=== PATIENT | female | born 1985 | race Two or more races ===

== ENCOUNTER 2024-02-18 15:36 | Inpatient (IN) | payer MEDICAID ==
[~2024-02-18] VITALS: Ht 157.5 cm; Wt 59.0 kg
[2024-02-18 16:04] LABS: BASOPHILS % (AUTO) 0.3 % (0.0-2.0); EOSINOPHILS % (AUTO) 0.3 % (0.0-7.0); HEMATOCRIT 37.1 % (31.2-41.9); HEMOGLOBIN 12.4 g/dL (10.9-14.3); LYMPHOCYTES # (AUTO) 1.3 K/uL (0.8-4.8); LYMPHOCYTES % (AUTO) 12.6 % (20.5-51.5); MEAN CORPUSCULAR HEMOGLOBIN 31.1 uug (24.7-32.8); MEAN CORPUSCULAR HGB CONC 34 g/dL (32.3-35.6); MEAN CORPUSCULAR VOLUME 92.6 fL (75.5-95.3); MONOCYTES # (AUTO) 0.4 K/uL (0.1-1.30); MONOCYTES % (AUTO) 4.5 % (0.0-11.0); NEUTROPHILS # (AUTO) 8.2 K/uL (1.8-8.9); NEUTROPHILS % (AUTO) 82.3 % (38.5-71.5); PLATELET COUNT (AUTO) 288 K/uL (179-408); RED CELL DISTRIBUTION WIDTH 14.7 % (12.3-17.7)
[2024-02-18 16:11] LABS: DIFFERENTIAL COMMENT 1
[2024-02-18 16:12] LABS: CALCIUM 9.1 mg/dL (8.5-10.1); CARBON DIOXIDE 26 mmol/L (21-32); CHLORIDE 104 mmol/L (98-107); CREATININE 0.9 mg/dL (0.6-1.3); GLUCOSE 131 mg/dL (74-106); POTASSIUM 3.9 mmol/L (3.5-5.1); SODIUM SERUM 138 mmol/L (136-145); UREA NITROGEN, BLOOD 13 mg/dL (7-18)
[2024-02-18 16:14] LABS: AMMONIA 21 umol/L (11-32)
[2024-02-18] MEDS: IV NORMAL SALINE 1000 ML BAG IV ONE ×2 (16:19→18:59)
[2024-02-18 16:21] LABS: ALANINE AMINOTRANSFERASE 28 U/L (14-59); ALBUMIN 3.5 g/dL (3.4-5.0); ALKALINE PHOSPHATASE 83 U/L (50-136); ASPARTATE AMINOTRANSFERASE 11 U/L (15-37); BILIRUBIN,DIRECT 0.1 mg/dL (0.0-0.2); BILIRUBIN,TOTAL 0.2 mg/dL (0.2-1.0)
[2024-02-18 16:26] LABS: THYROID STIMULATING HORMONE 1.335 mIU/mL (0.358-3.740)
[2024-02-18 16:33] LABS: ETHANOL < 3 MG/DL (0-10)
[2024-02-18 16:58] LABS: *BILIRUBIN,URIN NEGATIVE (NEGATIVE); *BLOOD, URINE 2+ (NEGATIVE); *COLOR,URINE YELLOW (YELLOW); *KETONES,URINE NEGATIVE (NEGATIVE); *PROTEIN,URINE 1+ (NEGATIVE); *UROBILINOGEN,URINE 0.2 E.U./dl (NORMAL); LEUKOCYTE ESTERASE ,URINE 1+ (NEGATIVE); NITRITE, URINE NEGATIVE (NEGATIVE); UGLUCOSE NEGATIVE (NEGATIVE)
[2024-02-18 17:04] LABS: *CLARITY,URINE SLIGHTLY CLOUDY (CLEAR)
[2024-02-18 17:09] LABS: *AMPHETAMINE, URINE NEGATIVE (NEGATIVE); *BARBITURATE, URINE NEGATIVE (NEGATIVE); *BENZODIAZEPINE, URINE NEGATIVE (NEGATIVE); *CANNABINOID, URINE POSITIVE (NEGATIVE); *COCCAINE, URINE NEGATIVE (NEGATIVE); *OPIATE, URINE NEGATIVE (NEGATIVE); *PHENCYCLIDINE SCREEN,URINE NEGATIVE (NEGATIVE); FENTANYL, URINE NEGATIVE (NEGATIVE)
[2024-02-18] MEDS ORDERED: LORAZEPAM 2 MG/1 ML VIAL ONE (17:13)
[2024-02-18] MEDS: LORAZEPAM 2 MG/1 ML VIAL IV ONE (17:16)
[2024-02-18 17:22] LABS: BACTERIA,URINE MODERATE /HPF (NONE SEEN); SQUAMOUS EPITHELIAL CELL,UR MANY /HPF (NONE SEEN)
[2024-02-18 18:32] LABS: *URINE HCG, QUAL NEGATIVE (NEGATIVE)
[2024-02-18] MEDS ORDERED: CEFTRIAXONE /D5W 50ML IVPB **ER PYXIS IV ONE (18:55)
[2024-02-18] MEDS: CEFTRIAXONE 1 G in IV DEXTROSE 5% 50 ML IV SCH (18:59)
[2024-02-18] MEDS ORDERED: IOHEXOL 350 100 ML INFUS..BTL ONE (20:27)
[2024-02-18] MEDS ORDERED: IV NORMAL SALINE 250 ML IV ONE (20:27)
[2024-02-18] MEDS ORDERED: SWABABLE VALVE TRANSFER SET EA MC ONE (20:27)
[2024-02-18] MEDS: IV LACTATED RINGERS SOLUTION 1,000 ML BAG IV ONE (21:00)
[2024-02-18] MEDS ORDERED: REMEDY ESSENTIAL ZINC PASTE 113 GM TP PRN (22:15)
[2024-02-18] MEDS ORDERED: ONDANSETRON 4 MG/2 ML VIAL IV PRN (22:15)
[2024-02-18] MEDS ORDERED: MAGNESIUM HYDROXIDE 30 ML LIQUID UDC PO PRN (22:15)
[2024-02-19] VITALS: BP 104/57; TEMP 97.7; O2SAT 93
[2024-02-19] MEDS: IV NS 1000 ML 1,000 ML IV SCH (01:01)
[2024-02-19 04:00] VITALS: BP 92/59; TEMP 97.5; O2SAT 93
[2024-02-19 06:47] LABS: BASOPHILS % (AUTO) 0.4 % (0.0-2.0); EOSINOPHILS % (AUTO) 0.6 % (0.0-7.0); HEMATOCRIT 33.4 % (31.2-41.9); HEMOGLOBIN 11.3 g/dL (10.9-14.3); LYMPHOCYTES # (AUTO) 2.3 K/uL (0.8-4.8); LYMPHOCYTES % (AUTO) 32.1 % (20.5-51.5); MEAN CORPUSCULAR HEMOGLOBIN 31.6 uug (24.7-32.8); MEAN CORPUSCULAR HGB CONC 34 g/dL (32.3-35.6); MEAN CORPUSCULAR VOLUME 93.4 fL (75.5-95.3); MONOCYTES # (AUTO) 0.4 K/uL (0.1-1.30); MONOCYTES % (AUTO) 6.1 % (0.0-11.0); NEUTROPHILS # (AUTO) 4.4 K/uL (1.8-8.9); NEUTROPHILS % (AUTO) 60.8 % (38.5-71.5); PLATELET COUNT (AUTO) 231 K/uL (179-408); RED BLOOD CELL COUNT(AUTO) 3.58 MIL/uL (3.63-4.92); RED CELL DISTRIBUTION WIDTH 14.9 % (12.3-17.7); WHITE BLOOD COUNT (AUTO) 7.2 K/uL (3.8-11.8)
[2024-02-19 06:56] LABS: CALCIUM 8.6 mg/dL (8.5-10.1); CREATININE 0.6 mg/dL (0.6-1.3); DIFFERENTIAL COMMENT 1; MAGNESIUM 2.2 mg/dL (1.8-2.4); PHOSPHOROUS 3.3 mg/dL (2.5-4.9); POTASSIUM 3.9 mmol/L (3.5-5.1)
[2024-02-19 07:47] VITALS: BP 90/51; TEMP 97.7; O2SAT 100
[2024-02-19] MEDS ORDERED: CEFTRIAXONE 1 G in IV DEXTROSE 5% 50 ML IV SCH (09:00)
[2024-02-19] MEDS: ACETAMINOPHEN 325 MG TABLET PO PRN (10:49)
[2024-02-19 11:14] VITALS: BP 105/65; TEMP 98.6; O2SAT 100
[2024-02-19] MEDS ORDERED: ASPIRIN/ACETAMINOPHEN/CAFFEINE TABLET PO PRN (15:00)
[2024-02-19 15:27] VITALS: BP 100/56; TEMP 98.4; O2SAT 94
[2024-02-19] MEDS ORDERED: VALPROATE SODIUM IV 250 MG in IV DEXTROSE 5% 100 ML IV ONE (15:30)
[2024-02-19] MEDS: PROCHLORPERAZINE EDISYLATE 10 MG/2 ML VIAL IV ONE (15:55)
[2024-02-19] MEDS: DEXAMETHASONE SOD PHOSPHATE 4 MG INJ IV ONE (15:55)
[2024-02-19] MEDS: MAGNESIUM SULFATE/D5W 100 ML IV SCH (15:55)
[2024-02-19] MEDS: VALPROATE SODIUM IV 250 MG in IV DEXTROSE 5% 100 ML IV ONE (17:04)
[2024-02-19 19:30] VITALS: BP 82/44; TEMP 98.1; O2SAT 100
[2024-02-20] VITALS: BP 78/42; TEMP 97.8; O2SAT 100
[2024-02-20 04:00] VITALS: BP 98/57; TEMP 97.3; O2SAT 100
[2024-02-20 07:14] LABS: BASOPHILS % (AUTO) 0.3 % (0.0-2.0); HEMATOCRIT 33.9 % (31.2-41.9); HEMOGLOBIN 11.7 g/dL (10.9-14.3); LYMPHOCYTES # (AUTO) 1.4 K/uL (0.8-4.8); MEAN CORPUSCULAR HEMOGLOBIN 31.8 uug (24.7-32.8); MEAN CORPUSCULAR HGB CONC 34 g/dL (32.3-35.6); MEAN CORPUSCULAR VOLUME 92.7 fL (75.5-95.3); MONOCYTES # (AUTO) 0.4 K/uL (0.1-1.30); NEUTROPHILS # (AUTO) 6.4 K/uL (1.8-8.9); NEUTROPHILS % (AUTO) 77.7 % (38.5-71.5); PLATELET COUNT (AUTO) 256 K/uL (179-408); RED BLOOD CELL COUNT(AUTO) 3.66 MIL/uL (3.63-4.92); RED CELL DISTRIBUTION WIDTH 14.6 % (12.3-17.7); WHITE BLOOD COUNT (AUTO) 8.2 K/uL (3.8-11.8)
[2024-02-20 07:20] LABS: CALCIUM 8.8 mg/dL (8.5-10.1); CREATININE 0.6 mg/dL (0.6-1.3); POTASSIUM 4.3 mmol/L (3.5-5.1)
[2024-02-20 07:29] LABS: DIFFERENTIAL COMMENT 1
[2024-02-20 07:46] VITALS: BP 73/35; TEMP 98.1; O2SAT 100
[2024-02-20] MEDS ORDERED: IV NS 1000 ML 1,000 ML IV PRN (08:45)
[2024-02-20 10:59] VITALS: BP 88/40; TEMP 98.1; O2SAT 99
[2024-02-20] MEDS ORDERED: NITR100C11 PO (12:49)
[2024-02-20] MEDS ORDERED: ASPI-1165 PO (12:49)
[2024-02-20 13:30] VITALS: BP 104/58; TEMP 98.1; O2SAT 97
== END 2024-02-20 13:45 | disposition home or self-care (01) | DRG 720 ==
LOC: ER 15:36 → MEDSURG3 23:22 → TELE3 02-19 01:04
PROVIDERS: ATTEND Internal Medicine
DX: A41.9 Sepsis, unspecified organism (principal); G92.8 Other toxic encephalopathy; E87.20 Acidosis, unspecified; N39.0 Urinary tract infection, site not specified; R65.20 Severe sepsis without septic shock; G43.909 Migraine, unspecified, not intractable, without status migrainosus; F12.10 Cannabis abuse, uncomplicated; R55 Syncope and collapse
CPT/HCPCS: 36415; 70450; 70496; 71045; 83605; 83735; 84100; 84443; 84484; 84703; 85025; 85730; 87040; A4663; C1758; G0378; G0480; J0696; J0780; J1100; J2060; J3475; J3490; J7040; J7120; Q9967